=== PATIENT | male | born 2000 | race Caucasian/White ===

== ENCOUNTER 2024-05-29 13:11 | Emergency (ER) | payer BC, MEDICAID, SELFPAY ==
[2024-05-29 13:17] VITALS: BP 173/94; PULSE 83; RESP 16; TEMP 36.8; O2SAT 99; BMI 31.6
--- NOTE | 2024-05-29 13:19 | ED_ITS ---
HPI - Extremity Injury (Upper) General: Chief Complaint: Extremity Injury, Upper Stated Complaint: rt wrist injury Time Seen by Provider: 05/29/24 13:13 Source: patient Mode of arrival: ambulatory Limitations: no limitations History of Present Illness: Patient is a nice 23-year-old male presents to ED today with a complaint of right wrist pain. Patient states he has had pain over the past several weeks. He states wrist initially began hurting when he was throwing hay tobi and injured it. He states it continues to bother him anytime he uses it. 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 He has never noticed any redness or swelling to the wrist joint. No numbness, tingling, loss of sensation. MD complaint: injury to: right and wrist Onset (ago): week(s) Other Extremity Injury: Right: wrist Other injuries: none Handedness: right Place: home Severity: mild Relieving factors: none Exacerbating factors: movement of extremity Associated symptoms: Reports no associated symptoms; Denies weakness in extremities Review of Systems Musc: Reports: joint pain (R wrist); Denies: extremity pain, extremity swelling, joint swelling, joint redness, joint warmth, limited range of motion, muscle cramps or muscle weakness Neuro: Denies: numbness in extremities, weakness in extremities or sensory changes Physical Exam Const: COMMON NORMALS: no acute distress, average body habitus, no limitations, healthy appearing, alert and well nourished Extremity: COMMON NORMALS: full ROM, capillary refill normal, no joint enlargement and no clubbing, cyanosis or edema GENERAL: Yes normal exam except as noted RIGHT UPPER EXTREMITY: Yes wrist (mild discomfort ulnar R wrist) Right wrist: Yes inspection (normal gross inspection; no edema/redness; pulses/cap refill normal), Yes ROM (normal) and Yes neurovascular exam (normal) Neuro: COMMON NORMALS: moves all extremities, no focal motor deficits and no sensory deficits noted SENSORIUM/ORIENTATION: Yes alert Skin: COMMON NORMALS: no rashes or lesions noted GENERAL SKIN EXAM: no rosendo hes or lesions noted Course Vital Signs: Vital signs: Vital Signs Temperature 98.3 F 05/29/24 13:17 Pulse Rate 78 05/29/24 14:18 Respiratory Rate 16 05/29/24 14:18 Blood Pressure 146/77 05/29/24 14:18 Pulse Oximetry 97 05/29/24 14:18 Oxygen Delivery Me thod Room Air 05/29/24 13:17 MDM - Extremity Injury (Upper) Medical Decision Making XR unremarkable. Will place in velcro wrist splint and follow up with PCP in a few weeks if symptoms do not improve. XR interpretation done by ED provider, pending radiology final review Discharge Plan Discharge Patient Disposition: Home Clinical Impression: Right wrist sprain Qualifiers: Encounter type: initial encounter Qualified Code(s): S63.501A - Unspecified sprain of right wrist, initial encounter Condition: Stable Discharge Orders: Discharge ED (Routine); Ordered 05/29/24 Ordered By: Aurea Malone Patient Instructions: Wrist Sprain (ED) Activity Restrictions/Additional Instructions: As we discussed, x-rays of your right wrist were unremarkable. We will place you in a Velcro wrist splint that you need to wear over the next 3 to 6 weeks as much as possible. You may ice the extremity and take [id number] anti- inflammatory such as ibuprofen or naproxen. Please follow-up with primary care in a few weeks if symptoms do not seem to be improving. Print Language: Maltese Coding Level of Care Code ED Supervisor P[employer] Mix[employer] for Celio Moody
--- NOTE | 2024-05-29 13:29 | XRR_ITS ---
PROCEDURE INFORMATION: Exam: XR Right Wrist Exam date and time: 05/29/2024 1:52 PM Age: 23 years old Clinical indication: Right; RT lateral wrist pain x 3mo per PT; No known injury; Possibly due to overuse TECHNIQUE: Imaging protocol: Radiologic exam of the right wrist. Views: 3 or more views. COMPARISON: No relevant prior studies available. FINDINGS: Bones/joints: No acute fracture or subluxation. No periosteal reaction or callus formation. Soft tissues: Normal. XR/XR wrist RT min 3V* [id number] IMPRESSION: No acute findings.
[2024-05-29 14:18] VITALS: BP 146/77; PULSE 78; RESP 16; O2SAT 97
--- NOTE | 2024-05-30 07:22 | DCPLANNER ---
messaged [facility] to establish primary
== END 2024-05-29 14:18 | disposition home or self-care (01) ==
PROVIDERS: Emergency Provider Physician Assistant
DX: S63.501A Unspecified sprain of right wrist, initial encounter (principal); X58.XXXA Exposure to other specified factors, initial encounter
CPT/HCPCS: 73110; 99283